=== PATIENT | male | born 1975 | race Two or more races ===

== ENCOUNTER 2018-01-15 15:37 | Emergency (ER) | payer SELFPAY ==
[2018-01-15] MEDS ORDERED: Ketorolac 60 MG/2 ML SDV IM ONE (16:31)
--- NOTE | 2018-01-15 16:37 | EDM.PDOC ---
ED HPI GENERAL MEDICAL PROBLEM - General Chief Complaint: Lower Extremity Injury/Pain Stated Complaint: RIGHT FOOT PAIN Time Seen by Provider: 01/15/18 16:20 Source of Information: Reports: Patient History Limitations: Reports: Other (no old records) - History of Present Illness INITIAL COMMENTS - FREE TEXT/NARRATIVE: 42 yo male presents with R ankle pain that he noted after getting off a small plane. He did not have this pain before the flight. He is concerned about a DVT. He denies a hx of gout, DVT or PE. He denies injury to this area. He thinks the lower R leg and ankle are a little more swollen than before. No self tx before arrival. Onset: Today Onset Date: 01/15/18 Duration: Hour(s):, Constant Location: Reports: Lower Extremity, Right Quality: Reports: Sharp (with movement of the ankle, not at rest.) Severity: Moderate Improves with: Reports: Rest Worsens with: Reports: Movement Context: Reports: Other (See HPI) Associated Symptoms: Reports: No Other Symptoms Treatments [employer]: Reports: Other (see below) (none) Right Ankle Pain Score (Numeric/FACES): 5 - Related Data Allergies Allergy/AdvReac Type Severity Reaction Status Date / Time No Known Allergies Allergy Verified 01/15/18 16:00 Home Meds: Home Meds NK [No Known Home Meds] 01/15/18 [History] Past Medical History Respiratory History: Reports: Sleep Apnea Neurological History: Reports: Migraines Endocrine/Metabolic History: Reports: Obesity/BMI 30+ - Past Surgical History Head Surgeries/Procedures: Reports: None Respiratory Surgical History: Reports: None Neurological Surgical History: Reports: None Social & Family History - Tobacco Use Smoking Status *Q: Light Tobacco Smoker Years of Tobacco use: 10 Packs/Tins Daily: 0.1 Used Tobacco, but Quit: No Second Hand Smoke Exposure: No - Alcohol Use Days Per Week of Alcohol Use: 1 Number of Drinks Per Day: 2 Total Drinks Per Week: 2 - Recreational Drug Use Recreational Drug Use: No Review of Systems - Review of Systems Review Of Systems: See Below Constitutional: Reports: No Symptoms Eyes: Reports: No Symptoms Ears: Reports: No Symptoms Nose: Reports: No Symptoms Mouth/Throat: Reports: No Symptoms Respiratory: Reports: No Symptoms GI/Abdominal: Reports: No Symptoms Genitourinary: Reports: No Symptoms Musculoskeletal: Reports: Joint Pain (R ankle), Other (? slight swelling of the R ankle and R calf.) Skin: Reports: No Symptoms ED EXAM, GENERAL - Physical Exam Exam: See Below Exam Limited By: No Limitations General Appearance: Alert, WD/WN, No Apparent Distress, Obese Eye Exam: Bilateral Eye: Normal Inspection Ears: Normal External Exam, Normal Canal, Hearing Grossly Normal Ear Exam: Bilateral Ear: Auricle Normal, Canal Normal Nose: Normal Inspection, Normal Mucosa, No Blood Throat/Mouth: Normal Inspection, Normal Voice, No Airway Compromise Head: Atraumatic, Normocephalic Neck: Normal Inspection Respiratory/Chest: No Respiratory Distress, Lungs Clear, Normal Breath Sounds, No Accessory Muscle Use Cardiovascular: Regular Rate, Rhythm, No Edema Extremities: Normal Inspection, Normal Range of Motion, No Pedal Edema, Other ( Pain with movement of the R ankle or with palpation at the anterior joint line. No calf pain, Kyree's sign negative. ). No: Non-Tender, Pedal Edema, Joint Swelling, Limited Range of Motion Neurological: Alert, Oriented, CN II-XII Intact, Normal Cognition, No Motor/ Sensory Deficits Psychiatric: Normal Affect, Normal Mood Skin Exam: Warm, Dry, Intact, Normal Color, No Rash Lymphatic: No Adenopathy Course - Vital Signs Text/Narrative:: Partial relief with Toradol IM 60 mg Last Recorded V/S: Last Vital Signs Temp 37.4 C 01/15/18 16:01 Pulse 80 01/15/18 16:01 Resp 16 01/15/18 16:01 BP 124/82 01/15/18 16:01 Pulse Ox 94 L 01/15/18 16:01 - Orders/Labs/Meds Labs: Laboratory Tests 01/15/18 Range/Units 16:31 D-Dimer, Quantitative < 100 (0.0-400.0) ng/mL Meds: Medications Discontinued Medications Generic Name Dose Route Start Last Admin Trade Name Freq PRN Reason Stop Dose Admin Ketorolac Tromethamine 60 mg 01/15/18 16:31 01/15/18 16:46 Toradol IM 01/15/18 16:32 60 mg ONETIME ONE Administration Departure - Departure Time of Disposition: 17:25 Disposition: Home, Self-Care 01 Condition: Good Clinical Impression: Ankle pain, right Qualifiers: Chronicity: acute Qualified Code(s): M25.571 - Pain in right ankle and joints of right foot - Discharge Information *PRESCRIPTION DRUG MONITORING PROGRAM REVIEWED*: Not Applicable *COPY OF PRESCRIPTION DRUG MONITORING REPORT IN PATIENT JESUS: Not Applicable Instructions: Ankle Pain Referrals: PCP,None [Primary Care Provider] - Forms: ED Department Discharge Additional Instructions: Take naproxen 500 mg every 12 hrs with food as needed for ankle pain(next dose after 10 pm tonight). Relative rest, consider crutch walking. Recheck if worse or not improving by one week.
== END 2018-01-15 17:36 | disposition home or self-care (01) ==
LOC: JP.ED 15:37
DX: M25.571 Pain in right ankle and joints of right foot (principal); F17.210 Nicotine dependence, cigarettes, uncomplicated
CPT/HCPCS: 36415; 85379; 96372; 99284; J1885; 99283